=== PATIENT | male | born 1965 | race Caucasian/White ===

== ENCOUNTER 2016-12-20 17:11 | Inpatient (IN) | payer OTHER ==
[~2016-12-20] VITALS: Ht 175.3 cm; Wt 97.5 kg
[2016-12-20 18:55] VITALS: BP 142/91; RESP 19
[2016-12-20] MEDS ORDERED: ONDANSETRON 4 MG INJ IV PRN (20:00)
[2016-12-20] MEDS ORDERED: ACETAMINOPHEN 325 MG TAB PO PRN (20:00)
[2016-12-20] MEDS ORDERED: traMADol 50 MG TAB PO PRN (20:00)
[2016-12-20 20:09] VITALS: BP 140/84; RESP 16
[2016-12-20 20:41] VITALS: Ht 175.3 cm; Wt 97.5 kg
[2016-12-20] MEDS ORDERED: CLON-412 PO (20:49)
[2016-12-20] MEDS ORDERED: CITA-104 PO (20:49)
[2016-12-20] MEDS: CIPROFLOXACIN 400MG/D5W 200 ML IVPB SCH (21:10)
[2016-12-20] MEDS: SOD CHLORIDE 0.9% 1,000 ML IV SCH (21:10)
[2016-12-20] MEDS ORDERED: LORAZEPAM 2 MG INJ IV PRN (22:15)
[2016-12-20] MEDS ORDERED: clonAZEPAM 0.5 MG TAB PO PRN (22:30)
[2016-12-20] MEDS: metroNIDAZOLE 500 MG/NS (PMX) 100 ML IVPB SCH (22:52)
[2016-12-21 01:55] VITALS: BP 115/78; RESP 18
[2016-12-21 05:48] LABS: BASOPHILS % 0.1 % (0.0-2.0); EOSINOPHILS # 0.3 10^3/ul (0.0-0.5); HEMATOCRIT 43.5 % (42.0-52.0); HEMOGLOBIN 14.2 g/dl (14.0-18.0); LYMPHOCYTES # 1.3 10^3/ul (0.8-2.9); LYMPHOCYTES % 15.8 % (15.0-51.0); MEAN CORPUSCULAR HEMOGLOBIN 31.5 pg (29.0-33.0); MEAN CORPUSCULAR HGB CONC 32.6 g/dl (32.0-37.0); MEAN CORPUSCULAR VOLUME 96.5 fl (82.0-101.0); MEAN PLATELET VOLUME 9.6 fl (7.4-10.4); MONOCYTE # 0.2 10^3/ul (0.3-0.9); MONOCYTES % 2.8 % (0.0-11.0); NEUTROPHIL # 6.3 10^3/ul (1.6-7.5); NEUTROPHILS % 76.6 % (39.0-77.0); PLATELET COUNT 228 10^3/UL (140-415); RED BLOOD COUNT 4.51 10^6/ul (4.70-6.10); RED CELL DISTRIBUTION WIDTH 12.4 % (11.5-14.5); WHITE BLOOD COUNT 8.2 10^3/ul (4.8-10.8)
[2016-12-21] MEDS: metroNIDAZOLE 500 MG/NS (PMX) 100 ML IVPB SCH ×3 (05:57→21:44)
[2016-12-21] MEDS: SOD CHLORIDE 0.9% 1,000 ML IV SCH ×4 (05:57→21:48)
[2016-12-21 06:10] LABS: ALBUMIN 3.2 g/dl (3.3-4.9); ALBUMIN/GLOBULIN RATIO 1.1; BILIRUBIN,INDIRECT 0.2 mg/dl (0-1.1); BILIRUBIN,TOTAL 0.2 mg/dl (0.2-1.3); CALCIUM 8.2 mg/dl (8.4-10.2); CREATININE 1.03 mg/dl (0.61-1.24); MAGNESIUM 1.7 mg/dl (1.7-2.5); PHOSPHORUS 4.4 mg/dl (2.5-4.9); POTASSIUM 3.8 mmol/L (3.5-5.1); TOTAL PROTEIN 6.1 g/dl (6.1-8.1)
[2016-12-21] MEDS ORDERED: KETOROLAC 30 MG INJ IV PRN (07:00)
--- NOTE | 2016-12-21 07:06 | HP ---
Date/Time of Note Date/Time of Note DATE: 12/21/16 TIME: 06:57 Assessment/Plan VTE Prophylaxis VTE Prophylaxis Intervention: SCD's Lines/Catheters IV [facility]ter Type (from [facility] Saline Lock Urinary Cath still in place: No Assessment/Plan Assessment/Plan 1. Diffuse colitis -We will send stool studies including C. difficile -We will treat with the Cipro and Flagyl -GI and ID consult will be placed -Pain management 2. Abdominal pain, secondary to above -See #1 3. Anxiety/depression -Antianxiety medications as needed HPI/ROS Admit Date/Time Admit Date/Time Dec 20, 2016 at 18:41 Hx of Present Illness This is a 51-year-old male with a history of anxiety/depression who initially presented to an outside hospital complaining of abdominal pain, diarrhea and nausea/vomiting. Patient was transferred to [facility] for insurance reason. symptoms started a few days ago. Abdominal pain is diffuse and diarrhea is watery and he just noticed here in the hospital that it is greenish and nonbloody. He said abdominal pain started while he was eating hamburger a few days ago. At the outside facility, CT abdomen/pelvis was done and it showed diffuse colitis. His vitals were stable and CBC and a CMP were also within acceptable range. On further questioning, he reported that he has been taking (2011) erythromycin pills for a pimple on the left side of his face. He denies chest pain or shortness of breath. . PMH/Family/Social Past Medical History Anxiety/depression Past Surgical History Past Surgical Hx: no surgical history Social History Alcohol Use: occasionally Smoking Status: Current every day smoker Drug Use: marijuana Exam/Review of Systems Vital Signs Vitals Vital Signs Date Time Temp Pulse Resp B/P Pulse Ox O2 Delivery O2 Flow Rate FiO2 12/21/16 01:55 98.2 61 18 115/78 94 Intake and Output 12/20/16 12/20/16 12/21/16 15:00 23:00 07:00 Intake Total 200 ml 900 ml Balance 200 ml 900 ml Exam Constitutional: alert, oriented, well developed Head: atraumatic, normocephalic Eyes: EOMI, PERRL Respiratory: clear to auscultation, normal air movement Cardiovascular: nl pulses, regular rate and rhythm Gastrointestinal: non-tender, soft Extremities: normal pulses Labs Result Diagram: 12/21/16 0528 12/21/1628 Medications Medications Current Medications Ciprofloxacin/ Dextrose 200 ml @ 200 mls/hr BID IVPB Last administered on 21:10; Admin Dose 200 MLS/HR; Start 12/20/16 at 21:00 Metronidazole 100 ml @ 100 mls/hr Q8 IVPB Last administered on 12/21/16 05:57 ; Admin Dose 100 MLS/HR; Start 12/20/16 at 22:00 Sodium Chloride (NS) 1,000 ml @ 100 mls/hr Q10H IV Last administered on 21:10; Admin Dose 100 MLS/HR; Start 12/20/16 at 20:00 Ondansetron HCl (Zofran Inj) 4 mg Q6H PRN IV NAUSEA AND/OR VOMITING Last administered on 12/20/16 21:11; Admin Dose 4 MG; Start 12/20/16 at 20:00 Acetaminophen (Tylenol Tab) 650 mg Q6H PRN PO PAIN AND OR ELEVATED TEMP; Start 12/20/16 at 20:00 Tramadol HCl (Ultram) 50 mg Q6H PRN PO PAIN Last administered on 12/20/16 21:11 ; Admin Dose 50 MG; Start 12/20/16 at 20:00 Citalopram Hydrobromide (Celexa) 40 mg DAILY PO ; Start 12/21/16 at 09:00 Clonazepam (Klonopin) 1 mg DAILY PRN PO ANXIETY; Start 12/20/16 at 22:30 Lorazepam (Ativan) 1 mg Q4H PRN IV ANXIETY; Start 12/20/16 at 22:15 Famotidine (Pepcid Iv) 20 mg BID IV ; Start 12/21/16 at 09:00 Ketorolac Tromethamine (Toradol) 30 mg Q6H PRN IV PAIN; Start 12/21/16 at 07:00 ; Stop 12/24/16 at 06:59 KARL RICHEY MD Dec 21, 2016 07:06
[2016-12-21 08:05] VITALS: BP 126/75; RESP 18
[2016-12-21] MEDS: FAMOTIDINE 20 MG INJ IV SCH ×2 (09:14→20:27)
[2016-12-21] MEDS: CITALOPRAM 20 MG TAB PO SCH (09:14)
[2016-12-21] MEDS: CIPROFLOXACIN 400MG/D5W 200 ML IVPB SCH ×2 (09:15→20:28)
[2016-12-21] MEDS ORDERED: HYDROCODONE/APAP (5/325) TAB PO PRN (11:00)
--- NOTE | 2016-12-21 11:09 | CONS ---
Date/Time of Note Date/Time of Note DATE: 12/21/16 TIME: 10:58 Assessment/Plan Assessment/Plan Additional Assessment/Plan Assessment * Abdominal pain/Diarrhea Pancolitis by CT scan Plan * request Stool for C difficile/stool culture * Stool for occult blood * Colonoscopy was discussed with patient but opted to wait for stool results * Continue present management * Further orders will depend on clinical course Consultation Date/Type/Reason Admit Date/Time Dec 20, 2016 at 18:41 Date of Consultation: Dec 21, 2016 Type of Consultation: Gastroenterology Reason for Consultation abdominal pain/colitis by CT scan Referring Provider: EARNESTINE WOODSON Hx of Present Illness 51 year old male with history of anxiety and depression was transferred to our facility because of abdominal pain.Present condition apparently started 1 week , after eating sandwich ,develop diffuse abdominal pain occurring on and off,non radiating .colicky with associated diarrhea.He denies hematemesis,hematochezia, nausea nor vomiting.CT scan of abdomen from [facility] revealed colitis throughout most of the colon with fluid filing rectosigmoid.Patient was subsequently transferred .Presently ,no abdominal pain,nausea,vomiting nor hematochezia. Constitutional: improved, no complaints Eyes: no complaints ENT: no complaints Respiratory: no complaints Cardiovascular: no complaints Gastrointestinal: diarrhea, pain Genitourinary: no complaints Musculoskeletal: no complaints Skin: no complaints Neurologic: no complaints Endocrine: no complaints Lymphatic: no complaints Psychological: nl mood/affect, no complaints Immunologic: no complaints Past Medical History Medical History: other (depression,anxiety) Past Surgical History Past Surgical Hx: no surgical history Social History Alcohol Use: occasionally Smoking Status: Current every day smoker Drug Use: marijuana Exam/Review of Systems Vital Signs Vitals Vital Signs Date Time Temp Pulse Resp B/P Pulse Ox O2 Delivery O2 Flow Rate FiO2 12/21/16 08:05 97.7 74 18 126/75 93 Intake and Output 12/20/16 12/20/16 12/21/16 15:00 23:00 07:00 Intake Total 200 ml 900 ml Balance 200 ml 900 ml Exam Constitutional: alert, oriented, well developed Psych: nl mood/affect, no complaints Head: atraumatic, normocephalic Eyes: EOMI, PERRL, nl lids ENMT: nl nasal mucosa & septum Neck: non-tender, supple Respiratory: clear to auscultation, normal air movement Cardiovascular: nl pulses, regular rate and rhythm Gastrointestinal: nl liver, spleen, non-tender, soft Musculoskeletal: nl extremities to inspection, nl gait and stance Extremities: normal pulses Neurological: [employer] II-XII intact, nl mental status, nl speech, nl strength Skin: nl turgor, No rash or lesions Lymph: nl lymph nodes Results Result Diagram: 12/21/1628 12/21/16527 Results 24 hrs Laboratory Tests Test 12/21/16 05:28 White Blood Count 8.2 Red Blood Count 4.51 L Hemoglobin 14.2 Hematocrit 43.5 Mean Corpuscular Volume 96.5 Mean Corpuscular Hemoglobin 31.5 Mean Corpuscular Hemoglobin Concent 32.6 Red Cell Distribution Width 12.4 Platelet Count 228 Mean Platelet Volume 9.6 Neutrophils % 76.6 Lymphocytes % 15.8 Monocytes % 2.8 Eosinophils % 4.0 Basophils % 0.1 Nucleated Red Blood Cells % 0.0 Neutrophils # 6.3 Lymphocytes # 1.3 Monocytes # 0.2 L Eosinophils # 0.3 Basophils # 0.0 Nucleated Red Blood Cells # 0.0 Sodium Level 139 Potassium Level 3.8 Chloride Level 104 Carbon Dioxide Level 23 Anion Gap 16 Blood Urea Nitrogen 4 L Creatinine 1.03 Glucose Level 81 Calcium Level 8.2 L Phosphorus Level 4.4 Magnesium Level 1.7 Total Bilirubin 0.2 Direct Bilirubin 0.00 Indirect Bilirubin 0.2 Aspartate Amino Transf (AST/SGOT) 18 Alanine Aminotransferase (ALT/SGPT) 40 Alkaline Phosphatase 147 H Total Protein 6.1 Albumin 3.2 L Globulin 2.90 Albumin/Globulin Ratio 1.10 Medications Medications Current Medications Ciprofloxacin/ Dextrose 200 ml @ 200 mls/hr BID IVPB Last administered on 09:15; Admin Dose 200 MLS/HR; Start 12/20/16 at 21:00 Metronidazole 100 ml @ 100 mls/hr Q8 IVPB Last administered on 12/21/16 05:57 ; Admin Dose 100 MLS/HR; Start 12/20/16 at 22:00 Sodium Chloride (NS) 1,000 ml @ 100 mls/hr Q10H IV Last administered on 09:15; Admin Dose 100 MLS/HR; Start 12/20/16 at 20:00 Ondansetron HCl (Zofran Inj) 4 mg Q6H PRN IV NAUSEA AND/OR VOMITING Last administered on 12/20/16 21:11; Admin Dose 4 MG; Start 12/20/16 at 20:00 Acetaminophen (Tylenol Tab) 650 mg Q6H PRN PO PAIN AND OR ELEVATED TEMP; Start 12/20/16 at 20:00 Tramadol HCl (Ultram) 50 mg Q6H PRN PO PAIN Last administered on 12/20/16 21:11 ; Admin Dose 50 MG; Start 12/20/16 at 20:00 Citalopram Hydrobromide (Celexa) 40 mg DAILY PO Last administered on 12/21/16 09:14; Admin Dose 40 MG; Start 12/21/16 at 09:00 Clonazepam (Klonopin) 1 mg DAILY PRN PO ANXIETY Last administered on 12/21/16 09:14; Admin Dose 1 MG; Start 12/20/16 at 22:30 Lorazepam (Ativan) 1 mg Q4H PRN IV ANXIETY Last administered on 12/21/16 07:10 ; Admin Dose 1 MG; Start 12/20/16 at 22:15 Famotidine (Pepcid Iv) 20 mg BID IV Last administered on 12/21/16 09:14; Admin Dose 20 MG; Start 12/21/16 at 09:00 Ketorolac Tromethamine (Toradol) 30 mg Q6H PRN IV PAIN Last administered on 12/21 07:09; Admin Dose 30 MG; Start 12/21/16 at 07:00; Stop 12/24/16 at 06:59 ESTELA KAPLAN MD Dec 21, 2016 11:08
--- NOTE | 2016-12-21 13:49 | CONS ---
Date/Time of Note Date/Time of Note DATE: 12/21/16 TIME: 13:47 Consultation Date/Type/Reason Admit Date/Time Dec 20, 2016 at 18:41 Date of Consultation: Dec 21, 2016 Type of Consultation: ID Reason for Consultation Antibiotic management.R/O causes of infectious diarrhea Constitutional: improved, no complaints Eyes: no complaints ENT: no complaints Respiratory: no complaints Cardiovascular: no complaints Gastrointestinal: diarrhea, pain Genitourinary: no complaints Musculoskeletal: no complaints Skin: no complaints Neurologic: no complaints Endocrine: no complaints Lymphatic: no complaints Psychological: nl mood/affect, no complaints Immunologic: no complaints Past Medical History Medical History: other (depression,anxiety) Past Surgical History Past Surgical Hx: no surgical history Social History Alcohol Use: occasionally Smoking Status: Current every day smoker Drug Use: marijuana Exam/Review of Systems Vital Signs Vitals Vital Signs Date Time Temp Pulse Resp B/P Pulse Ox O2 Delivery O2 Flow Rate FiO2 12/21/16 08:05 97.7 74 18 126/75 93 Intake and Output 12/20/16 12/20/16 12/21/16 14:59 22:59 06:59 Intake Total 200 ml 900 ml Balance 200 ml 900 ml Results Result Diagram: 12/21/16 0528 12/21/16 0528 Results 24 hrs Laboratory Tests Test 12/21/16 05:28 White Blood Count 8.2 Red Blood Count 4.51 L Hemoglobin 14.2 Hematocrit 43.5 Mean Corpuscular Volume 96.5 Mean Corpuscular Hemoglobin 31.5 Mean Corpuscular Hemoglobin Concent 32.6 Red Cell Distribution Width 12.4 Platelet Count 228 Mean Platelet Volume 9.6 Neutrophils % 76.6 Lymphocytes % 15.8 Monocytes % 2.8 Eosinophils % 4.0 Basophils % 0.1 Nucleated Red Blood Cells % 0.0 Neutrophils # 6.3 Lymphocytes # 1.3 Monocytes # 0.2 L Eosinophils # 0.3 Basophils # 0.0 Nucleated Red Blood Cells # 0.0 Sodium Level 139 Potassium Level 3.8 Chloride Level 104 Carbon Dioxide Level 23 Anion Gap 16 Blood Urea Nitrogen 4 L Creatinine 1.03 Glucose Level 81 Calcium Level 8.2 L Phosphorus Level 4.4 Magnesium Level 1.7 Total Bilirubin 0.2 Direct Bilirubin 0.00 Indirect Bilirubin 0.2 Aspartate Amino Transf (AST/SGOT) 18 Alanine Aminotransferase (ALT/SGPT) 40 Alkaline Phosphatase 147 H Total Protein 6.1 Albumin 3.2 L Globulin 2.90 Albumin/Globulin Ratio 1.10 Medications Medications Current Medications Ciprofloxacin/ Dextrose 200 ml @ 200 mls/hr BID IVPB Last administered on 09:15; Admin Dose 200 MLS/HR; Start 12/20/16 at 21:00 Metronidazole 100 ml @ 100 mls/hr Q8 IVPB Last administered on 12/21/16 13:34 ; Admin Dose 100 MLS/HR; Start 12/20/16 at 22:00 Sodium Chloride (NS) 1,000 ml @ 100 mls/hr Q10H IV Last administered on 09:15; Admin Dose 100 MLS/HR; Start 12/20/16 at 20:00 Ondansetron HCl (Zofran Inj) 4 mg Q6H PRN IV NAUSEA AND/OR VOMITING Last administered on 12/20/16 21:11; Admin Dose 4 MG; Start 12/20/16 at 20:00 Acetaminophen (Tylenol Tab) 650 mg Q6H PRN PO PAIN AND OR ELEVATED TEMP; Start 12/20/16 at 20:00 Tramadol HCl (Ultram) 50 mg Q6H PRN PO PAIN Last administered on 12/20/16 21:11 ; Admin Dose 50 MG; Start 12/20/16 at 20:00 Citalopram Hydrobromide (Celexa) 40 mg DAILY PO Last administered on 12/21/16 09:14; Admin Dose 40 MG; Start 12/21/16 at 09:00 Famotidine (Pepcid Iv) 20 mg BID IV Last administered on 12/21/16 09:14; Admin Dose 20 MG; Start 12/21/16 at 09:00 Ketorolac Tromethamine (Toradol) 30 mg Q6H PRN IV PAIN Last administered on 12/21 07:09; Admin Dose 30 MG; Start 12/21/16 at 07:00; Stop 12/24/16 at 06:59 Lorazepam (Ativan) 1 mg Q6H PRN PO ANXIETY; Start 12/21/16 at 11:00 Acetaminophen/ Hydrocodone Bitart ([place] (5/325)) 1 tab Q4H PRN PO FOR PAIN ; Start 12/21/16 at 11:00 ELIZABET LEIGH MD Dec 21, 2016 13:49
--- NOTE | 2016-12-21 14:35 | PN ---
Date/Time of Note Date/Time of Note DATE: 12/21/16 TIME: 14:34 Assessment/Plan VTE Prophylaxis VTE Prophylaxis Intervention: ambulation Lines/Catheters IV [facility]from [facility] Peripheral IV Urinary Cath still in place: No Assessment/Plan Chief Complaint/Hosp Course Patient is a 51-year-old male with a past medical history of anxiety and depression who presented from an outside hospital for abdominal pain diarrhea nausea vomiting, CT at that outside facility found diffuse colitis and patient was transferred. Assessment and problem list Diffuse colitis Abdominal pain Nausea and vomiting Diarrhea Anxiety Depression Plan -GI has been consulted, pending results of stool studies, possible colonoscopy following -ID following -Restart home meds as able -Clears to advance diet as tolerated -Continue Ativan as needed for anxiety, patient is on Klonopin at home -Pain control as needed -Repeat labs and follow-up in the morning Problems: Subjective 24 Hr Interval Summary Free Text/Dictation no abdominal pain currently Exam/Review of Systems Vital Signs Vitals Vital Signs Date Time Temp Pulse Resp B/P Pulse Ox O2 Delivery O2 Flow Rate FiO2 12/21/16 08:05 97.7 74 18 126/75 93 Intake and Output 12/20/16 12/20/16 12/21/16 15:00 23:00 07:00 Intake Total 200 ml 900 ml Balance 200 ml 900 ml Exam Physical exam General: Patient is laying in bed and answers questions appropriately Mentation: Patient is alert and oriented 4, Head: Normocephalic atraumatic Eyes: EOMI, pupils reactive to light Neck: Supple, nontender, midline Respiratory: Clear to auscultation bilaterally Cardiovascular: regular rate, no obvious murmurs Gastrointestinal: non-tender to palpation, bowel sounds heard. Neurological: Moves all extremities spontaneously Skin: No new skin lesions Results Result Diagram: 12/21/1652712/21/16527 Results 24 hrs Laboratory Tests Test 12/21/16 05:28 White Blood Count 8.2 Red Blood Count 4.51 L Hemoglobin 14.2 Hematocrit 43.5 Mean Corpuscular Volume 96.5 Mean Corpuscular Hemoglobin 31.5 Mean Corpuscular Hemoglobin Concent 32.6 Red Cell Distribution Width 12.4 Platelet Count 228 Mean Platelet Volume 9.6 Neutrophils % 76.6 Lymphocytes % 15.8 Monocytes % 2.8 Eosinophils % 4.0 Basophils % 0.1 Nucleated Red Blood Cells % 0.0 Neutrophils # 6.3 Lymphocytes # 1.3 Monocytes # 0.2 L Eosinophils # 0.3 Basophils # 0.0 Nucleated Red Blood Cells # 0.0 Sodium Level 139 Potassium Level 3.8 Chloride Level 104 Carbon Dioxide Level 23 Anion Gap 16 Blood Urea Nitrogen 4 L Creatinine 1.03 Glucose Level 81 Calcium Level 8.2 L Phosphorus Level 4.4 Magnesium Level 1.7 Total Bilirubin 0.2 Direct Bilirubin 0.00 Indirect Bilirubin 0.2 Aspartate Amino Transf (AST/SGOT) 18 Alanine Aminotransferase (ALT/SGPT) 40 Alkaline Phosphatase 147 H Total Protein 6.1 Albumin 3.2 L Globulin 2.90 Albumin/Globulin Ratio 1.10 Medications Medications Current Medications Ciprofloxacin/ Dextrose 200 ml @ 200 mls/hr BID IVPB Last administered on 09:15; Admin Dose 200 MLS/HR; Start 12/20/16 at 21:00 Metronidazole 100 ml @ 100 mls/hr Q8 IVPB Last administered on 12/21/16 13:34 ; Admin Dose 100 MLS/HR; Start 12/20/16 at 22:00 Sodium Chloride (NS) 1,000 ml @ 100 mls/hr Q10H IV Last administered on 09:15; Admin Dose 100 MLS/HR; Start 12/20/16 at 20:00 Ondansetron HCl (Zofran Inj) 4 mg Q6H PRN IV NAUSEA AND/OR VOMITING Last administered on 12/20/16 21:11; Admin Dose 4 MG; Start 12/20/16 at 20:00 Acetaminophen (Tylenol Tab) 650 mg Q6H PRN PO PAIN AND OR ELEVATED TEMP; Start 12/20/16 at 20:00 Tramadol HCl (Ultram) 50 mg Q6H PRN PO PAIN Last administered on 12/20/16 21:11 ; Admin Dose 50 MG; Start 12/20/16 at 20:00 Citalopram Hydrobromide (Celexa) 40 mg DAILY PO Last administered on 12/21/16 09:14; Admin Dose 40 MG; Start 12/21/16 at 09:00 Famotidine (Pepcid Iv) 20 mg BID IV Last administered on 12/21/16 09:14; Admin Dose 20 MG; Start 12/21/16 at 09:00 Ketorolac Tromethamine (Toradol) 30 mg Q6H PRN IV PAIN Last administered on 12/21t 07:09; Admin Dose 30 MG; Start 12/21/16 at 07:00; Stop 12/24/16 at 06:59 Lorazepam (Ativan) 1 mg Q6H PRN PO ANXIETY; Start 12/21/16 at 11:00 Acetaminophen/ Hydrocodone Bitart ([place] (5/325)) 1 tab Q4H PRN PO FOR PAIN ; Start 12/21/16 at 11:00 EARNESTINE WOODSON Dec 21, 2016 14:35
--- NOTE | 2016-12-21 15:19 | CONS ---
DATE OF ADMISSION: 12/20/2016 DATE OF CONSULTATION: 12/21/2016 REASON FOR CONSULTATION: Antibiotic management. HISTORY OF PRESENT ILLNESS: Joel Sherman is a 51-year-old male with a history of anxiety and depression, who presented to an outside hospital with abdominal pain, nausea, vomiting, diarrhea. He was transferred to [facility]. His abdominal pain is diffuse. The diarrhea is watery and also seems to be greenish and nonbloody. He said the abdominal pain started when he was eating a hamburger a few days ago. CT scan of the abdomen and pelvis was done, which showed a diffuse colitis. His vital signs were stable. On admission, his white count was 8.2, H and H of 14.2 and 43.5, platelet count of 228,000. BUN and creatinine 41/1.03. Patient was started on Cipro and Flagyl. PAST SURGICAL HISTORY: None. PAST MEDICAL HISTORY: The patient suffers from anxiety and depression. SOCIAL HISTORY: He is an everyday smoker. He drinks occasionally. Uses marijuana, but no heavy drugs. ALLERGIES: NONE TO PENICILLIN, SULFA, OR FOODS. MEDICATION: Per chart. REVIEW OF SYSTEMS: As per HPI. PHYSICAL EXAMINATION: GENERAL: Patient is a well-developed, well-nourished male who is alert, responsive, in no acute distress. VITAL SIGNS: Stable. He is afebrile. SKIN: A generalized rash. HEENT: Within normal limits. NECK: Supple. Lymph nodes nonpalpable. CHEST: Decreased breath sounds at the bases. HEART: Without murmur or gallop. ABDOMEN: Soft, somewhat tender without organosplenomegaly or masses. EXTREMITIES: Without cyanosis, clubbing, or edema. RECTAL/GENITALIA: Deferred. NEUROLOGIC: No focal neurological abnormalities. HOSPITAL COURSE: The patient was seen by Dr. Rodriguez in GI consultation. He requested stool for C difficile, stool for occult blood., and colonoscopy was discussed. We have to consider the possibilities of Salmonella, Garcinia, campylobacter, and a variety of other entities. We will get stools for C and S. Feces culture was ordered. We will continue him on his Cipro and Flagyl. I will dictate my findings to the hospitalist and to Dr. Rodriguez. Dictated By: Louis Earl MD JD/dona/leigh /Document#: [id number]
[2016-12-21 16:35] VITALS: BP 112/72; RESP 20
--- NOTE | 2016-12-21 17:58 | CONS ---
Date/Time of Note Date/Time of Note DATE: 12/21/16 TIME: 17:07 Assessment/Plan Assessment/Plan Chief Complaint/Hosp Course ID PROGRESS NOTE CURRENT ABX: Cipro IV #2 + Flagyl #2 24 HOUR INTERVAL SUMMARY * A/A/O ->spouse present, no fevers, VSS * "Just went to the bathroom right before you came in and had a totally normal bowel movement and the ABD pain is gone." * He started on clears tolerated -- sxs resolved today after 24H+ IV ABX. Exam Constitutional: alert, oriented, well developed Head: atraumatic, normocephalic Eyes: EOMI, PERRL Respiratory: clear to auscultation, normal air movement Cardiovascular: nl pulses, regular rate and rhythm Gastrointestinal: Soft, (+)tender LLQ, (+)BS Extremities: normal pulses Neurological: nl mental status, nl speech, nl strength ID ASSESSMENT 51 yo M admit with: 1. Acute gastroenteritis/DDx food poisoning after eating hamburger w/nausea, vomiting, diarrhea x 5 days prior to returning to [facility] * Was seen ED ~on and was Dx with food poisoning => advised self- limiting and given pain meds + PPI 2. Acute CROSS Colitis -> per CT 12/20 @ * Returned to ED on 12/20=> CT scan of abdomen from [facility] revealed colitis throughout most of the colon with fluid filing rectosigmoid. * Given Levaquin x1 IV + Flagyl IV -> Patient TNS to [facility] for insurance reasons 3. Abdominal pain, secondary to above 4. GERD 5. Hx of Depression/Anxiety w/hx of panic attacks -- Antianxiety medications as needed 6. Adult acne -- recent erythromycin Rx CURRENT ABX: Cipro IV #2 + Flagyl #2 ID RECOMMENDATIONS 1. Patient's sxs have resolved w/>24H IV ABX. Patient is currently asymptomatic. 2. Patient seen by GI ADMINISTRATIVE SUPPORT ASSOCIATE who advised schedule colonoscopy as outpatient, patient has never had one and is 51year old. 3. May DC home in am 8/5 on Cipro 500mg po BID x 3 days + Flagyl 250mg po TID x 3 days. . Problems: Consultation Date/Type/Reason Admit Date/Time Dec 20, 2016 at 18:41 Initial Consult Date 12/21/16 Type of Consultation: ID Referring Provider: EARNESTINE WOODSON Exam/Review of Systems Vital Signs Vitals Vital Signs Date Time Temp Pulse Resp B/P Pulse Ox O2 Delivery O2 Flow Rate FiO2 12/21/16 16:35 98.0 64 20 112/72 93 Intake and Output 12/20/16 12/20/16 12/21/16 15:00 23:00 07:00 Intake Total 200 ml 900 ml Balance 200 ml 900 ml Results Result Diagram: 12/21/1628 12/21/1628 Results 24 hrs Laboratory Tests Test 12/21/16 05:28 White Blood Count 8.2 Red Blood Count 4.51 L Hemoglobin 14.2 Hematocrit 43.5 Mean Corpuscular Volume 96.5 Mean Corpuscular Hemoglobin 31.5 Mean Corpuscular Hemoglobin Concent 32.6 Red Cell Distribution Width 12.4 Platelet Count 228 Mean Platelet Volume 9.6 Neutrophils % 76.6 Lymphocytes % 15.8 Monocytes % 2.8 Eosinophils % 4.0 Basophils % 0.1 Nucleated Red Blood Cells % 0.0 Neutrophils # 6.3 Lymphocytes # 1.3 Monocytes # 0.2 L Eosinophils # 0.3 Basophils # 0.0 Nucleated Red Blood Cells # 0.0 Sodium Level 139 Potassium Level 3.8 Chloride Level 104 Carbon Dioxide Level 23 Anion Gap 16 Blood Urea Nitrogen 4 L Creatinine 1.03 Glucose Level 81 Calcium Level 8.2 L Phosphorus Level 4.4 Magnesium Level 1.7 Total Bilirubin 0.2 Direct Bilirubin 0.00 Indirect Bilirubin 0.2 Aspartate Amino Transf (AST/SGOT) 18 Alanine Aminotransferase (ALT/SGPT) 40 Alkaline Phosphatase 147 H Total Protein 6.1 Albumin 3.2 L Globulin 2.90 Albumin/Globulin Ratio 1.10 Medications Medications Current Medications Ciprofloxacin/ Dextrose 200 ml @ 200 mls/hr BID IVPB Last administered on 09:15; Admin Dose 200 MLS/HR; Start 12/20/16 at 21:00 Metronidazole 100 ml @ 100 mls/hr Q8 IVPB Last administered on 12/21/16 13:34 ; Admin Dose 100 MLS/HR; Start 12/20/16 at 22:00 Sodium Chloride (NS) 1,000 ml @ 100 mls/hr Q10H IV Last administered on 09:15; Admin Dose 100 MLS/HR; Start 12/20/16 at 20:00 Ondansetron HCl (Zofran Inj) 4 mg Q6H PRN IV NAUSEA AND/OR VOMITING Last administered on 12/20/16 21:11; Admin Dose 4 MG; Start 12/20/16 at 20:00 Acetaminophen (Tylenol Tab) 650 mg Q6H PRN PO PAIN AND OR ELEVATED TEMP; Start 12/20/16 at 20:00 Tramadol HCl (Ultram) 50 mg Q6H PRN PO PAIN Last administered on 12/20/16 21:11 ; Admin Dose 50 MG; Start 12/20/16 at 20:00 Citalopram Hydrobromide (Celexa) 40 mg DAILY PO Last administered on 12/21/16 09:14; Admin Dose 40 MG; Start 12/21/16 at 09:00 Famotidine (Pepcid Iv) 20 mg BID IV Last administered on 12/21/16 09:14; Admin Dose 20 MG; Start 12/21/16 at 09:00 Ketorolac Tromethamine (Toradol) 30 mg Q6H PRN IV PAIN Last administered on 12/21 07:09; Admin Dose 30 MG; Start 12/21/16 at 07:00; Stop 12/24/16 at 06:59 Lorazepam (Ativan) 1 mg Q6H PRN PO ANXIETY; Start 12/21/16 at 11:00 Acetaminophen/ Hydrocodone Bitart ([place] (5/325)) 1 tab Q4H PRN PO FOR PAIN ; Start 12/21/16 at 11:00 Bisacodyl (Dulcolax) 10 mg ONCE ONCE PO ; Start 12/23/16 at 17:00; Stop 12/23/16 at 17:01 Magnesium Citrate (Citroma) 300 ml ONCE ONCE PO ; Start 12/23/16 at 17:30; Stop 12/23/16 at 17:31 Polyethylene Glycol (Miralax) 119 gm ONCE ONCE PO ; Start 12/23/16 at 18:30; Stop 12/23/16 at 18:31 CRISTINA KING NP Dec 21, 2016 17:17
[2016-12-21 19:27] VITALS: BP 138/83; RESP 20
[2016-12-21] MEDS: LORAZEPAM 1 MG TAB PO PRN (21:44)
[2016-12-22 01:37] VITALS: BP 118/76; RESP 20
[2016-12-22] MEDS: SOD CHLORIDE 0.9% 1,000 ML IV SCH ×2 (02:00→12:00)
[2016-12-22] MEDS: metroNIDAZOLE 500 MG/NS (PMX) 100 ML IVPB SCH (05:40)
[2016-12-22 05:42] LABS: BASOPHILS % 0.1 % (0.0-2.0); EOSINOPHILS # 0.4 10^3/ul (0.0-0.5); EOSINOPHILS % 4.8 % (0.0-7.0); HEMATOCRIT 40.6 % (42.0-52.0); HEMOGLOBIN 13.3 g/dl (14.0-18.0); LYMPHOCYTES # 1.3 10^3/ul (0.8-2.9); LYMPHOCYTES % 17.9 % (15.0-51.0); MEAN CORPUSCULAR HEMOGLOBIN 31.2 pg (29.0-33.0); MEAN CORPUSCULAR HGB CONC 32.8 g/dl (32.0-37.0); MEAN CORPUSCULAR VOLUME 95.3 fl (82.0-101.0); MEAN PLATELET VOLUME 10.1 fl (7.4-10.4); MONOCYTE # 0.3 10^3/ul (0.3-0.9); MONOCYTES % 3.9 % (0.0-11.0); NEUTROPHIL # 5.5 10^3/ul (1.6-7.5); NEUTROPHILS % 72.6 % (39.0-77.0); PLATELET COUNT 235 10^3/UL (140-415); RED BLOOD COUNT 4.26 10^6/ul (4.70-6.10); RED CELL DISTRIBUTION WIDTH 12.6 % (11.5-14.5); WHITE BLOOD COUNT 7.5 10^3/ul (4.8-10.8)
[2016-12-22 05:56] LABS: CALCIUM 8.2 mg/dl (8.4-10.2); CREATININE 0.97 mg/dl (0.61-1.24); MAGNESIUM 1.7 mg/dl (1.7-2.5); POTASSIUM 3.6 mmol/L (3.5-5.1)
[2016-12-22 07:17] VITALS: BP 120/76; RESP 20
[2016-12-22] MEDS: FAMOTIDINE 20 MG INJ IV SCH (08:36)
[2016-12-22] MEDS: CITALOPRAM 20 MG TAB PO SCH (08:36)
[2016-12-22] MEDS: CIPROFLOXACIN 400MG/D5W 200 ML IVPB SCH (08:36)
[2016-12-22] MEDS: LORAZEPAM 1 MG TAB PO PRN (08:38)
[2016-12-22] MEDS ORDERED: clonAZEPAM 0.5 MG TAB PO PRN (10:00)
--- NOTE | 2016-12-22 12:50 | PDOCDIS ---
Discharge Instructions CONDITION Patient Condition: Stable HOME CARE INSTRUCTIONS: Special Diet: full liquid FOLLOW UP/APPOINTMENTS Follow-up Plan 1. Take both antibiotics as directed 2. Must follow up with gastroenterology, with a referral from your primary care provider for follow up colonoscopy and upper endoscopy 3. Follow up with your primary care provider. EARNESTINE WOODSON Dec 22, 2016 12:50
[2016-12-22] MEDS ORDERED: CIPR500T4 PO (12:51)
[2016-12-22] MEDS ORDERED: METR500T PO (12:51)
--- NOTE | 2016-12-22 12:59 | DS ---
Date/Time of Note Date/Time of Note DATE: 12/22/16 TIME: 12:59 Discharge Summary Admission/Discharge Info Admit Date/Time Dec 20, 2016 at 18:41 Discharge Date/Time Patient Condition: Stable Hx of Present Illness This is a 51-year-old male with a history of anxiety/depression who initially presented to an outside hospital complaining of abdominal pain, diarrhea and nausea/vomiting. Patient was transferred to [facility] for insurance reason. symptoms started a few days ago. Abdominal pain is diffuse and diarrhea is watery and he just noticed here in the hospital that it is greenish and nonbloody. He said abdominal pain started while he was eating hamburger a few days ago. At the outside facility, CT abdomen/pelvis was done and it showed diffuse colitis. His vitals were stable and CBC and a CMP were also within acceptable range. On further questioning, he reported that he has been taking (2011) erythromycin pills for a pimple on the left side of his face. He denies chest pain or shortness of breath. . Hospital Course Patient is a 51-year-old male with past medical history significant for anxiety depression who presented from outside hospital for abdominal pain diarrhea nausea vomiting and was found from an outside hospital CT to have diffuse colitis. Patient was evaluated and admitted to the medicine service and was seen by GI. Patient symptoms completely resolved and infectious disease stated the patient could be released on 3 days of ciprofloxacin and metronidazole. GI also recommended outpatient follow-up with a human resources leader and outpatient colonoscopy and upper endoscopy as soon as possible. Patient understands and it was fully explained how to follow-up with gastroenterology following his visit to a primary care provider. Patient's vital signs are within normal limits and patient's abdominal pain has nearly completely resolved. Discharge diagnosis Diffuse colitis, resolving Abdominal pain, resolved Nausea Vomiting Diarrhea Anxiety Depression Home Meds Active Scripts Metronidazole* (Flagyl*) 500 Mg Tablet, 500 MG PO Q8 for 3 Days, #9 TAB Prov:EARNESTINE WOODSON 12/22/16 Ciprofloxacin Hcl* (Ciprofloxacin Hcl*) 500 Mg Tablet, 500 MG PO BID for 3 Days , #6 TAB Prov:EARNESTINE WOODSON 12/22/16 Reported Medications Citalopram Hydrobromide* (Citalopram Hydrobromide*) 40 Mg Tablet, 40 MG PO DAILY , #30 TAB 12/20/16 Clonazepam* (Klonopin*) 1 Mg Tablet, 1 MG PO DAILY Y for ANXIETY, TAB 12/20/16 Primary Care Provider Not On Staff Doctor Pending Labs Laboratory Tests Test 12/22/16 05:00 White Blood Count 7.510^3/ul (4.8-10.8) Red Blood Count 4.2610^6/ul (4.70-6.10) Hemoglobin 13.3g/dl (14.0-18.0) Hematocrit 40.6% (42.0-52.0) Mean Corpuscular Volume 95.3fl (82.0-101.0) Mean Corpuscular Hemoglobin 31.2pg (29.0-33.0) Mean Corpuscular Hemoglobin Concent 32.8g/dl (32.0-37.0) Red Cell Distribution Width 12.6% (11.5-14.5) Platelet Count 22506^3/UL (140-415) Mean Platelet Volume 10.1fl (7.4-10.4) Neutrophils % 72.6% (39.0-77.0) Lymphocytes % 17.9% (15.0-51.0) Monocytes % 3.9% (0.0-11.0) Eosinophils % 4.8% (0.0-7.0) Basophils % 0.1% (0.0-2.0) Nucleated Red Blood Cells % 0.0/100WBC (0.0-0.0) Neutrophils # 5.510^3/ul (1.6-7.5) Lymphocytes # 1.310^3/ul (0.8-2.9) Monocytes # 0.310^3/ul (0.3-0.9) Eosinophils # 0.410^3/ul (0.0-0.5) Basophils # 0.010^3/ul (0.0-0.1) Nucleated Red Blood Cells # 0.010^3/ul (0.0-0.0) Sodium Level 142mmol/L (135-144) Potassium Level 3.6mmol/L (3.5-5.1) Chloride Level 107mmol/L (97-110) Carbon Dioxide Level 23mmol/L (21-31) Anion Gap 16 (8-16) Blood Urea Nitrogen 4mg/dl (7-20) Creatinine 0.97mg/dl (0.61-1.24) Glucose Level 83mg/dl (70-220) Calcium Level 8.2mg/dl (8.4-10.2) Phosphorus Level 4.0mg/dl (2.5-4.9) Magnesium Level 1.7mg/dl (1.7-2.5) EARNESTINE WOODSON Dec 22, 2016 12:59
[2016-12-23] MEDS ORDERED: BISACODYL (EC) 5 MG TAB PO ONE (17:00)
[2016-12-23] MEDS ORDERED: MAGNESIUM CITRATE 300 ML BTL PO ONE (17:30)
[2016-12-23] MEDS ORDERED: POLYETHYLENE GLYCOL 3350 119 GM POWDER PO ONE (18:30)
[2016-12-24] MEDS ORDERED: POLYETHYLENE GLYCOL 3350 119 GM POWDER PO ONE (06:00)
[2016-12-24] MEDS ORDERED: BISACODYL (EC) 5 MG TAB PO ONE (08:00)
== END 2016-12-22 13:20 | disposition home or self-care (01) | DRG 392 ==
LOC: MS2 18:41
PROVIDERS: ADMIT Internal Medicine; ATTEND Internal Medicine
DX: K52.9 Noninfective gastroenteritis and colitis, unspecified (principal); K51.00 Ulcerative (chronic) pancolitis without complications; F41.0 Panic disorder [episodic paroxysmal anxiety]; F32.9 Major depressive disorder, single episode, unspecified; R19.7 Diarrhea, unspecified; R11.2 Nausea with vomiting, unspecified; F17.210 Nicotine dependence, cigarettes, uncomplicated; K21.9 Gastro-esophageal reflux disease without esophagitis
CPT/HCPCS: 80048; 80053; 83735; 84100; 85025; 87045; 87075; 87205; J0744; J1885; J2060; J2405; J7030

== ENCOUNTER 2017-07-25 08:29 | Day surgery (SDC) | END 2017-07-25 12:20 | disposition home or self-care (01) ==